=== PATIENT | female | born 1945 | race Caucasian/White ===

== ENCOUNTER 2016-10-03 10:15 | Outpatient (RCR) | payer MEDICARE, BC ==
[~2016-10-03 10:15] MED LIST: NO HOME MEDICATIONS; PHENERGAN 25 TA25 MG PO; PHENERGAN25 MG RC
== END 2016-10-20 09:22 ==
LOC: MKS.ESL.PT 10:15
DX: G60.8 Other hereditary and idiopathic neuropathies (principal)

== ENCOUNTER 2016-10-18 09:45 | Outpatient (RCR) | payer MEDICARE, BC | END 2016-10-20 09:22 | disposition home or self-care (01) | LOC: MKS.ESL.PT 09:45 | DX: G60.8 Other hereditary and idiopathic neuropathies (principal) | CPT/HCPCS: G8978-GP; G8979-GP; G8980-GP ==

== ENCOUNTER → 2017-05-08 | Outpatient (CLI) | payer MEDICARE, BC | LOC: MC.RAD 10:34 | DX: Z12.31 Encounter for screening mammogram for malignant neoplasm of breast (principal) ==

== ENCOUNTER → 2018-07-06 | Outpatient (CLI) | payer MEDICARE, BC | LOC: MC.RAD 11:13 | DX: Z12.31 Encounter for screening mammogram for malignant neoplasm of breast (principal) ==

== ENCOUNTER → 2019-01-09 | Outpatient (CLI) | payer MEDICARE, BC | LOC: COL.RAD 12:40 | DX: G31.9 Degenerative disease of nervous system, unspecified (principal); R26.81 Unsteadiness on feet; R63.4 Abnormal weight loss | CPT/HCPCS: A9585 ==

== ENCOUNTER 2019-01-30 11:03 | Emergency (ER) | payer MEDICARE, BC ==
[~2019-01-30] VITALS: Ht 157.5 cm; Wt 48.2 kg
[2019-01-30] MEDS ORDERED: NEURONTIN300 MG/CAP PO (11:29)
[2019-01-30] MEDS ORDERED: NYSTATIN OR100 MU/ML PO (11:36)
[2019-01-30] MEDS ORDERED: B-12 500 MCG PO (11:37)
[2019-01-30] MEDS ORDERED: ATIVAN 1MG T1 MG/TAB PO (11:37)
[2019-01-30 11:51] LABS: BASO # 0.1 (0.0-0.2); EOS # 0.1 (0.0-0.7); EOS % 2.2 % (0-4.0); GRAN # 3.9 (1.4-6.5); GRAN % 66.2 % (42.2-75.2); HEMATOCRIT 38.2 % (37.0-47.0); HEMOGLOBIN 12.8 g/dl (12.5-16.0); LYMPH # 1.4 (1.2-3.4); LYMPH % 23.5 % (20.0-51.0); MEAN CELL VOLUME 96 fl (80.0-100.0); MEAN CORPUSCULAR HEMOGLOBIN 32 pg (27.0-31.0); MEAN CORPUSCULAR HGB CONC 34 g/dl (33.0-37.0); MEAN PLATELET VOLUME 9.3 fl (7.4-10.4); MONO # 0.4 (0.1-0.6); MONO % 6.6 % (1.7-9.3); PLATELET COUNT 305 K/mm3 (130-400); RED BLOOD COUNT 3.99 M/mm3 (4.10-5.30); REDCELL DISTRIBUTION WIDTH-CV 12.9 % (11.5-14.5)
[2019-01-30 11:57] LABS: ALANINE AMINOTRANSFERASE 29 U/L (9-52); ALBUMIN 4.6 gm/dL (3.5-5.0); ALKALINE PHOSPHATASE 75 U/L (50-136); ANION GAP 9 mmol/L (7-16); AST,SGOT 33 U/L (15-37); BILIRUBIN,TOTAL 0.3 mg/dL (0.0-1.0); BLOOD UREA NITROGEN 27 mg/dL (7-17); CALCIUM 9.5 mg/dL (8.4-10.2); CARBON DIOXIDE 29 mmol/L (22-30); CHLORIDE 103 mmol/L (98-107); GLUCOSE 100 mg/dL (74-106); POTASSIUM 4.3 mmol/L (3.4-5.0); SODIUM 141 mmol/L (137-145); TOTAL PROTEIN 7.4 gm/dL (6.4-8.2)
[2019-01-30 11:58] LABS: C-REACTIVE PROTEIN < 0.5 mg/dL (0.0-0.9)
[2019-01-30] MEDS ORDERED: TESSALON PERLE200 MG PO (13:24)
[2019-01-30] MEDS ORDERED: MYCELEX10 MG/TAB MM (13:24)
[2019-01-30 13:39] VITALS: BP 115/48; PULSE 77; TEMP 98.1
== END 2019-01-30 13:39 | disposition home or self-care (01) ==
LOC: COL.ER 11:03
PROVIDERS: Family Medicine
DX: B37.0 Candidal stomatitis (principal); R05 Cough

== ENCOUNTER 2019-02-21 12:30 | Outpatient (RCR) | payer MEDICARE, BC ==
[~2019-02-21 12:30] MED LIST changes: +ATIVAN 1MG T1 MG/TAB PO; +B-12 500 MCG PO; +MYCELEX10 MG/TAB MM; +NEURONTIN300 MG/CAP PO; +NYSTATIN OR100 MU/ML PO; +TESSALON PERLE200 MG PO
== END 2019-03-21 08:28 | disposition home or self-care (01) ==
LOC: WSPT 12:30
DX: H81.11 Benign paroxysmal vertigo, right ear (principal); G60.8 Other hereditary and idiopathic neuropathies; E53.8 Deficiency of other specified B group vitamins

== ENCOUNTER → 2019-04-15 | Outpatient (CLI) | payer MEDICARE, BC | LOC: COL.PUL 09:25 | DX: R06.02 Shortness of breath (principal) | CPT/HCPCS: J7674 ==

== ENCOUNTER 2019-05-10 10:00 | Outpatient (RCR) | payer MEDICARE, BC | END 2019-06-19 | disposition home or self-care (01) | LOC: WSPT | DX: M54.5 Low back pain (principal); G89.29 Other chronic pain; M25.551 Pain in right hip | CPT/HCPCS: G0283-GP ==

== ENCOUNTER 2019-10-09 10:00 | Outpatient (RCR) | payer MEDICARE, BC | END 2019-10-14 | disposition home or self-care (01) | LOC: WSPT | DX: M54.5 Low back pain (principal); G89.29 Other chronic pain ==

== ENCOUNTER 2020-01-08 09:45 | Outpatient (RCR) | payer MEDICARE, BC | END 2020-01-14 | disposition home or self-care (01) | LOC: WSPT | DX: M54.5 Low back pain (principal); G89.29 Other chronic pain ==

== ENCOUNTER 2020-02-04 12:15 | Outpatient (RCR) | payer MEDICARE, BC | END 2020-03-02 | disposition home or self-care (01) | LOC: WSPT | DX: M54.5 Low back pain (principal); G89.29 Other chronic pain ==

== ENCOUNTER 2020-05-27 10:15 | Outpatient (RCR) | payer MEDICARE, BC ==
[2020-07-31] MEDS ORDERED: PERCOCET 325 MG1 TA2 PO (10:03)
[2020-07-31] MEDS ORDERED: NEURONTIN300 MG/CAP PO (10:03)
[2020-07-31] MEDS ORDERED: ALEVE 220MG220 MG PO (10:04)
[2020-07-31] MEDS ORDERED: FLEXERIL5 MG PO (10:04)
[2020-07-31] MEDS ORDERED: REQUIP0.25 MG PO (10:05)
[2020-07-31] MEDS ORDERED: COLACE 100100 MG/CAP PO (10:06)
== END 2020-06-09 | disposition home or self-care (01) ==
LOC: WSPT
DX: M54.5 Low back pain (principal); G89.29 Other chronic pain

== ENCOUNTER 2020-07-29 15:46 | Emergency (ER) | payer MEDICARE, BC ==
[~2020-07-29] VITALS: Ht 154.9 cm; Wt 55.5 kg
[2020-07-29 15:52] VITALS: TEMP 98.3
[2020-07-29] MEDS ORDERED: ZOFRAN ODT4 MG PO (17:18)
[2020-07-29] MEDS ORDERED: PERCOCET 325 MG1 TA2 PO (17:18)
[2020-07-29 18:08] VITALS: BP 129/71; PULSE 67
[2020-07-31] MEDS ORDERED: PERCOCET 325 MG1 TA2 PO (10:03)
[2020-07-31] MEDS ORDERED: NEURONTIN300 MG/CAP PO (10:03)
[2020-07-31] MEDS ORDERED: FLEXERIL5 MG PO (10:04)
[2020-07-31] MEDS ORDERED: ALEVE 220MG220 MG PO (10:04)
[2020-07-31] MEDS ORDERED: REQUIP0.25 MG PO (10:05)
[2020-07-31] MEDS ORDERED: COLACE 100100 MG/CAP PO (10:06)
== END 2020-07-29 18:09 | disposition home or self-care (01) ==
LOC: COL.ER 15:46
DX: G89.29 Other chronic pain (principal); M54.5 Low back pain; R05 Cough; B37.9 Candidiasis, unspecified

== ENCOUNTER → 2020-08-05 | Outpatient (CLI) | payer MEDICARE, BC ==
[~2020-08-05] VITALS: Ht 157.5 cm; Wt 55.2 kg
[~2020-08-05] MED LIST changes: +ALEVE 220MG220 MG PO; +COLACE 100100 MG/CAP PO; +FLEXERIL5 MG PO; +PERCOCET 325 MG1 TA2 PO; +REQUIP0.25 MG PO; +ZOFRAN ODT4 MG PO
[2020-08-05 07:06] VITALS: BP 144/64; PULSE 74
[2020-08-05 08:15] VITALS: BP 129/73; PULSE 73
== END ==
LOC: COL.RAD 06:52
DX: M48.061 Spinal stenosis, lumbar region without neurogenic claudication (principal)
CPT/HCPCS: J3301; Q9965

== ENCOUNTER 2020-11-05 10:30 | Outpatient (RCR) | payer MEDICARE, BC | END 2020-11-10 | disposition home or self-care (01) | LOC: WSPT | DX: M54.5 Low back pain (principal); M54.10 Radiculopathy, site unspecified ==

== ENCOUNTER 2020-12-22 10:30 | Outpatient (RCR) | payer MEDICARE, BC | END 2021-02-11 | disposition home or self-care (01) | LOC: WSPT | DX: M54.50 Low back pain, unspecified (principal); G89.29 Other chronic pain ==

== ENCOUNTER 2021-09-23 09:45 | Outpatient (RCR) | payer MEDICARE, BC | END 2021-09-26 | disposition home or self-care (01) | LOC: WSPT | DX: R26.89 Other abnormalities of gait and mobility (principal) ==

== ENCOUNTER → 2021-10-27 | Outpatient (RCR) | payer MEDICARE, BC | END | disposition home or self-care (01) | LOC: WSPT | DX: R26.89 Other abnormalities of gait and mobility (principal) ==

== ENCOUNTER → 2021-12-27 | Outpatient (RCR) | payer MEDICARE, BC | END | disposition home or self-care (01) | LOC: WSPT | DX: R26.89 Other abnormalities of gait and mobility (principal) | CPT/HCPCS: G0283-GP ==

== ENCOUNTER 2022-05-26 09:45 | Outpatient (RCR) | payer MEDICARE, BC | END 2022-05-27 | disposition home or self-care (01) | LOC: WSPT | DX: R26.89 Other abnormalities of gait and mobility (principal) ==

== ENCOUNTER 2022-06-15 11:15 | Outpatient (RCR) | payer MEDICARE, BC | END 2022-06-26 | disposition home or self-care (01) | LOC: WSPT | DX: R26.89 Other abnormalities of gait and mobility (principal) ==

== ENCOUNTER 2023-02-13 09:00 | Outpatient (RCR) | payer MEDICARE, BC | END 2023-02-26 | disposition home or self-care (01) | LOC: WSPT | DX: M48.061 Spinal stenosis, lumbar region without neurogenic claudication (principal) ==

== ENCOUNTER 2023-03-28 11:15 | Outpatient (RCR) | payer MEDICARE, BC | END 2023-03-29 | disposition home or self-care (01) | LOC: WSPT | DX: M48.061 Spinal stenosis, lumbar region without neurogenic claudication (principal) ==

== ENCOUNTER 2023-04-24 09:45 | Outpatient (RCR) | payer MEDICARE, BC | END 2023-04-27 | disposition home or self-care (01) | LOC: WSPT | DX: M48.061 Spinal stenosis, lumbar region without neurogenic claudication (principal) ==